=== PATIENT | female | born 2000 | race Caucasian/White ===

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

== ENCOUNTER 2019-03-15 16:16 | Inpatient (IN) | payer MEDICAID ==
[~2019-03-15] VITALS: Ht 152.4 cm; Wt 60.3 kg
[~2019-03-15 16:16] MED LIST: CALCIUM; FERR325E14 PO
[2019-03-15 16:27] VITALS: BP 122/87
[2019-03-15] MEDS ORDERED: PREN-380 PO (17:25)
[2019-03-15] MEDS ORDERED: LACTATED RINGERS 1,000 ML IV SCH (18:44)
[2019-03-15] MEDS ORDERED: METHYLERGONOVINE 0.2 MG/ML AMP IM PRN (18:45)
[2019-03-15] MEDS ORDERED: CARBOPROST 250 MCG/ML AMP IM PRN (18:45)
[2019-03-15] MEDS ORDERED: OXYTOCIN 20 UNITS in LACTATED RINGERS 1,000 ML IV SCH (18:45)
[2019-03-15] MEDS ORDERED: PROMETHAZINE 25 MG/ML VIAL IVP PRN (18:45)
[2019-03-15] MEDS ORDERED: NALBUPHINE 10 MG/ML AMP IVP PRN (18:45)
[2019-03-15 19:37] LABS: BASOPHILS % (AUTO) 0.3 % (0.0-2.0); EOSINOPHILS # (AUTO) 0.1 K/uL (0-0.4); HEMATOCRIT 35.2 % (36-48); HEMOGLOBIN 11.4 g/dL (12.0-16.0); LYMPHOCYTES # (AUTO) 1.6 K/uL (2.5-16.5); LYMPHOCYTES % (AUTO) 22.7 % (20.5-51.1); MEAN CORPUSCULAR HEMOGLOBIN 29 pg (27-31); MEAN CORPUSCULAR HGB CONC 33 g/dL (33-37); MEAN CORPUSCULAR VOLUME 88.4 fL (80-94); MONOCYTES # (AUTO) 0.5 K/uL (0.8-1.0); MONOCYTES % (AUTO) 7.5 % (1.7-9.3); NEUTROPHILS % (AUTO) 68.5 % (42.2-75.2); PLATELET COUNT (AUTO) 160 K/uL (140-450); RED BLOOD CELL COUNT(AUTO) 3.98 MIL/uL (4.20-5.40); RED CELL DISTRIBUTION WIDTH 14.7 % (11.6-13.7); WHITE BLOOD COUNT (AUTO) 7.2 K/uL (4.5-11.0)
[2019-03-15 19:37] LABS: APPEARANCE,URINE CLEAR (CLEAR); BILIRUBIN,URINE NEGATIVE (NEGATIVE); BLOOD, URINE NEGATIVE (NEGATIVE); COLOR,URINE YELLOW (YELLOW); LEUKOCYTE ESTERASE ,URINE 1+ (NEGATIVE); NITRITE, URINE NEGATIVE (NEGATIVE); PH,URINE 6.5 (5.0-9.0); UGLUCOSE NEGATIVE (NEGATIVE)
[2019-03-15 19:49] LABS: RBC,URINE 0-5 /HPF (0-5)
[2019-03-15] MEDS ORDERED: OXYTOCIN 20 UNITS/LR PREMIX 1,000 ML IV ONE (20:11)
[2019-03-15 20:30] VITALS: BP 115/77
[2019-03-16] MEDS ORDERED: NALBUPHINE 10 MG/ML AMP ONE (03:11)
[2019-03-16] MEDS ORDERED: PROMETHAZINE 25 MG/ML VIAL ONE (03:11)
[2019-03-16] MEDS ORDERED: ROPIVACAINE 0.2%/NS PREMIX 100 ML EPI ONE ×2 (08:56→18:33)
[2019-03-16] MEDS ORDERED: ROPIVACAINE 0.2%/NS PREMIX 100 ML EPI SCH (09:07)
[2019-03-16] MEDS ORDERED: GENTAMICIN PER PHARMACY MC PRN (21:30)
[2019-03-16] MEDS ORDERED: AMPICILLIN 2,000 MG VIAL ONE (21:38)
[2019-03-16] MEDS ORDERED: GENTAMICIN 80 MG/2 ML VIAL ONE (22:35)
[2019-03-16] MEDS ORDERED: ACETAMINOPHEN 325 MG TAB ONE (22:55)
[2019-03-16] MEDS ORDERED: ceFAZolin 1,000 MG VIAL ONE ×2 (23:19→23:45)
[2019-03-16] MEDS ORDERED: CITRIC ACID/SODIUM CITRATE 30 ML UDC ONE (23:19)
[2019-03-16] MEDS ORDERED: ONDANSETRON 4 MG/2 ML VIAL ONE (23:45)
[2019-03-16] MEDS ORDERED: LIDOCAINE MPF 2% 100 MG/5 ML VIAL INJ ONE (23:59)
[2019-03-16] MEDS ORDERED: MIDAZOLAM 2 MG/2 ML VIAL ONE (23:59)
[2019-03-17] MEDS ORDERED: MORPHINE PRES FREE 10 MG/10 ML AMP IV ONE
[2019-03-17] MEDS ORDERED: METHYLERGONOVINE 0.2 MG/ML AMP ONE (00:34)
[2019-03-17] MEDS ORDERED: OXYTOCIN 20 UNITS in LACTATED RINGERS 1,000 ML IV SCH (00:43)
[2019-03-17] MEDS ORDERED: NALBUPHINE 10 MG/ML AMP IVP PRN (00:45)
[2019-03-17] MEDS ORDERED: NALOXONE 0.4 MG/ML VIAL IVP PRN ×3 (00:45)
[2019-03-17] MEDS ORDERED: HYDROmorphone 1 MG/ML AMP IVP PRN (00:45)
[2019-03-17] MEDS ORDERED: ONDANSETRON 4 MG/2 ML VIAL IVP PRN ×2 (00:45)
[2019-03-17] MEDS ORDERED: diphenhydrAMINE 50 MG/ML VIAL IVP PRN ×2 (00:45)
[2019-03-17] MEDS ORDERED: MEPERIDINE 25 MG/ML SYR IVP PRN (00:45)
[2019-03-17] MEDS ORDERED: OXYTOCIN 10 UNITS in LACTATED RINGERS 1,000 ML IV SCH (01:41)
[2019-03-17] MEDS ORDERED: MEASLES, MUMPS, AND RUBELLA 1 VIAL SQVAC PRN (01:45)
[2019-03-17] MEDS ORDERED: TRIMETHOBENZAMIDE 200 MG/2 ML SYR IM PRN (01:45)
[2019-03-17] MEDS ORDERED: METHYLERGONOVINE 0.2 MG/ML AMP IM PRN (01:45)
[2019-03-17] MEDS ORDERED: MEPERIDINE 25 MG/ML SYR ONE (01:47)
[2019-03-17] MEDS ORDERED: OXYTOCIN 20 UNITS/LR PREMIX 1,000 ML IV ONE (02:19)
[2019-03-17] MEDS: KETOROLAC 30 MG/ML VIAL IM/IVP SCH ×3 (06:03→17:23)
[2019-03-17 07:45] LABS: BASOPHILS % (AUTO) 0.1 % (0.0-2.0); HEMATOCRIT 30.4 % (36-48); HEMOGLOBIN 9.9 g/dL (12.0-16.0); LYMPHOCYTES # (AUTO) 1.2 K/uL (2.5-16.5); LYMPHOCYTES % (AUTO) 7.1 % (20.5-51.1); MEAN CORPUSCULAR HEMOGLOBIN 29 pg (27-31); MEAN CORPUSCULAR HGB CONC 33 g/dL (33-37); MEAN CORPUSCULAR VOLUME 88.6 fL (80-94); MONOCYTES # (AUTO) 0.4 K/uL (0.8-1.0); MONOCYTES % (AUTO) 2.6 % (1.7-9.3); NEUTROPHILS # (AUTO) 15.5 K/uL (1.8-7.7); NEUTROPHILS % (AUTO) 90.2 % (42.2-75.2); PLATELET COUNT (AUTO) 117 K/uL (140-450); RED BLOOD CELL COUNT(AUTO) 3.43 MIL/uL (4.20-5.40); RED CELL DISTRIBUTION WIDTH 14.9 % (11.6-13.7); WHITE BLOOD COUNT (AUTO) 17.2 K/uL (4.5-11.0)
[2019-03-17] MEDS ORDERED: AMPICILLIN 2,000 MG in NACL 0.9% 100 ML IV SCH (22:15)
[2019-03-17] MEDS ORDERED: GENTAMICIN 80 MG in DEXTROSE 5% 100 ML IV SCH (22:15)
[2019-03-18] MEDS: KETOROLAC 30 MG/ML VIAL IM/IVP SCH ×2 (00:02→06:15)
[2019-03-18] MEDS: oxyCODONE/APAP 5/325 MG 1 TAB TAB PO PRN ×2 (09:33→13:50)
[2019-03-18] MEDS: BISACODYL 10 MG SUPP RC SCH (09:34)
[2019-03-18] MEDS: IBUPROFEN 600 MG TAB PO SCH ×2 (13:49→21:09)
[2019-03-19] MEDS: oxyCODONE/APAP 5/325 MG 1 TAB TAB PO PRN ×3 (04:35→22:03)
[2019-03-19] MEDS: IBUPROFEN 600 MG TAB PO SCH ×4 (09:07→22:03)
[2019-03-19] MEDS: BISACODYL 10 MG SUPP RC SCH (09:07)
[2019-03-20] MEDS: BISACODYL 10 MG SUPP RC SCH (09:14)
[2019-03-20] MEDS: IBUPROFEN 600 MG TAB PO SCH ×2 (09:14→13:19)
== END 2019-03-20 16:00 | disposition home or self-care (01) | DRG 540 ==
LOC: MED 16:16 → MLD 17:02 → OBSVTOIN 18:43 → MFCC 03-17 02:00
PROVIDERS: ADMIT Obstetrics & Gynecology; ATTEND Obstetrics & Gynecology
PROC: 10D00Z1 Extraction of Products of Conception, Low, Open Approach (ICD-10-PCS; principal; 2019-03-17)
PROC: 3E0234Z Introduction of Serum, Toxoid and Vaccine into Muscle, Percutaneous Approach (ICD-10-PCS; 2019-03-18)
DX: O48.0 Post-term pregnancy (principal); O26.899 Other specified pregnancy related conditions, unspecified trimester; O36.8130 Decreased fetal movements, third trimester, not applicable or unspecified; O62.2 Other uterine inertia; O76 Abnormality in fetal heart rate and rhythm complicating labor and delivery; O67.9 Intrapartum hemorrhage, unspecified; Z37.0 Single live birth; Z3A.41 41 weeks gestation of pregnancy; Z23 Encounter for immunization
CPT/HCPCS: 99281; G0378; 36415; 76805; 76819; 81001; 85025; 86592; 86886; 86900; 86901; 87086; 90715; J0290; J0690; J1580; J1885; J2001; J2175; J2210; J2250; J2270; J2300; J2405; J2550; J2590; J2795; J7120; Q0092